=== PATIENT | female | born 1960 | race Two or more races ===

== ENCOUNTER 2023-01-06 23:42 | Emergency (ER) | payer OTHER ==
[~2023-01-06] VITALS: Ht 167.6 cm; Wt 73.0 kg
[2023-01-07 00:32] VITALS: BP 142/73
[2023-01-07 01:06] LABS: ABG BASE EXCESS -1.7 mmol/L; ABG PCO2 42.1 mmHg (35.0-45.0); ABG PH 7.367 (7.350-7.450); ABG PO2 21.4 mmHg (75.0-100.0); COHb 0.6 % (0.5-1.5); MetHb 0.4 % (0.0-1.5); O2Hb 45.4 % (94.0-97.0); SITE, ABG Left Brachial; VENT MODE, BG ROOM AIR
--- NOTE | 2023-01-07 01:16 | NUR ---
Patient discharged to home in stable condition. Written and verbal after care instructions given. Patient verbalizes understanding of instruction.
[2023-01-07 03:22] LABS: ABG BASE EXCESS 0.3 mmol/L; ABG PCO2 48.3 mmHg (35.0-45.0); ABG PH 7.356 (7.350-7.450); ABG PO2 21.2 mmHg (75.0-100.0); COHb 0.2 % (0.5-1.5); MetHb 0.8 % (0.0-1.5); O2Hb 30.3 % (94.0-97.0); SITE, ABG Left Brachial; VENT MODE, BG ROOM AIR
--- NOTE | 2023-01-07 03:48 | NUR ---
RT NOTE PT PLACED ON HIGH FLOW NASAL CANNULA 100% 15 LPM. PT TOLERATING WELL. MD MORGAN AWARE.
[2023-01-07 05:29] LABS: ABG BASE EXCESS 0.8 mmol/L; ABG PCO2 47.1 mmHg (35.0-45.0); ABG PO2 21.8 mmHg (75.0-100.0); COHb 0.3 % (0.5-1.5); MetHb 0.6 % (0.0-1.5); SITE, ABG Left Brachial; VENT MODE, BG HFNC 100%
[2023-01-07 08:01] LABS: ABG BASE EXCESS 0.4 mmol/L; ABG PCO2 44.8 mmHg (35.0-45.0); ABG PO2 28.4 mmHg (75.0-100.0); COHb 0.2 % (0.5-1.5); MetHb 0.4 % (0.0-1.5); O2Hb 52.4 % (94.0-97.0); SITE, ABG Other; VENT MODE, BG 30L 100% HFNC
--- NOTE | 2023-01-07 08:01 | NUR ---
PAtient AOx4 sean to express concerns. No signs of distress. Blood collected for RT.
--- NOTE | 2023-01-07 08:37 | NUR ---
Discharge plan discussed and instructions given to pt, patient verbalized agreement.
== END 2023-01-07 01:18 | disposition home or self-care (01) ==
LOC: ER 01-07 00:30
DX: T58.91XA Toxic effect of carbon monoxide from unspecified source, accidental (unintentional), initial encounter (principal); I10 Essential (primary) hypertension; Y92.89 Other specified places as the place of occurrence of the external cause
CPT/HCPCS: 36600